=== PATIENT | female | born 1945 | race Caucasian/White ===

== ENCOUNTER 2020-01-17 11:25 | Emergency (ER) | payer OTHER ==
[~2020-01-17] VITALS: Ht 165.1 cm; Wt 86.2 kg
[~2020-01-17 11:25] MED LIST: ADVAIR 100-501 EACH INH; ALEVE220 MG PO; ALLEGRA ALLERGY60 MG; ASPIR 8181 M1 PO; AUGMENTIN 875875 M1; BACTROBAN15 GM; BENADRYL25 MG PO; BENICAR HCT 401 EACH PO; BENICAR40 MG; BUPROPION; CALCIUM MAGNES1 EAC2 PO; CALCIUM500 M1 PO; CELEBREX; CIPROFLOXACIN500 M3 GT; COUMADIN; COUMADIN 4 MG TA4 M1 PO; DICLOXACILLIN250 M1 OR; HYDROCODONE-AP1 EAC6 PO; HYDROCODONE-APA1 TA1 PO; HYDROXYZINE HCL25 M2 PO; KLOR-CON 1010 MEQ PO; LASIX 40 MG TAB40 M1 PO; LEVAQUIN 500 M500 MG PO; LYRICA; LYRICA 75 MG CA75 MG PO; MINIPRIN81 MG; PERCOCET 7.5-31 EACH PO; PLAVIX 75 MG TA75 MG; PROAIR HFA8.5 GM INH; SILVADENE20 GM; SIMVASTATIN40 MG PO; SINGULAIR 10 MG10 M1 PO; VITAMIN B-6250 MG PO; WELLBUTRIN SR100 MG PO; XARELTO10 MG PO
[2020-01-17] MEDS ORDERED: KEFLEX500 M1 PO (12:18)
[2020-01-17 13:45] VITALS: BP 139/66
== END 2020-01-17 13:46 | disposition home or self-care (01) ==
LOC: M.ERS 11:25
DX: I80.02 Phlebitis and thrombophlebitis of superficial vessels of left lower extremity (principal); J44.9 Chronic obstructive pulmonary disease, unspecified; I10 Essential (primary) hypertension; Z88.1 Allergy status to other antibiotic agents; Z91.040 Latex allergy status; Z88.6 Allergy status to analgesic agent; Z88.8 Allergy status to other drugs, medicaments and biological substances; Z90.49 Acquired absence of other specified parts of digestive tract; Z90.710 Acquired absence of both cervix and uterus; Z86.718 Personal history of other venous thrombosis and embolism

== ENCOUNTER → 2020-07-30 | Outpatient (CLI) | payer OTHER ==
[~2020-07-30] MED LIST changes: +KEFLEX500 M1 PO
== END ==
LOC: M.WC 08:00
PROVIDERS: ATTEND Emergency Medicine Undersea and Hyperbaric Medicine
DX: I87.012 Postthrombotic syndrome with ulcer of left lower extremity (principal); L97.822 Non-pressure chronic ulcer of other part of left lower leg with fat layer exposed; I73.9 Peripheral vascular disease, unspecified; I10 Essential (primary) hypertension; E78.5 Hyperlipidemia, unspecified; G47.30 Sleep apnea, unspecified; J44.9 Chronic obstructive pulmonary disease, unspecified; Z95.828 Presence of other vascular implants and grafts; Z90.49 Acquired absence of other specified parts of digestive tract

== ENCOUNTER 2020-10-17 14:42 | Inpatient (IN) | payer OTHER ==
[~2020-10-17] VITALS: Ht 167.6 cm; Wt 70.3 kg
[2020-10-17 14:51] VITALS: BP 169/94
[2020-10-17 16:18] LABS: ABSOLUTE LYMPHOCYTES 1.1 thou/uL (0.8-5.3); ABSOLUTE MONOCYTES 0.7 thou/uL (0.0-1.2); ABSOLUTE NEUTROPHILS 5.4 thou/uL (1.6-8.1); BASOPHILS 0.1 %; HEMATOCRIT 44.3 % (37.0-47.0); HEMOGLOBIN 14.9 gm/dL (12.0-15.0); LYMPHOCYTES 15.6 %; MCH 31.1 pg (26.0-34.0); MCHC 33.5 g/dL (28.0-37.0); MCV 92.8 fL (80.0-100.0); MONOCYTES 9.3 %; MPV 9.5 fl. (7.2-11.1); NUCLEATED RBCS 0 /100WBC; PLATELET COUNT* 224 thou/uL (150-400); RBC 4.78 mil/uL (4.20-5.00); RDW-CV 14.8 % (10.5-14.5); WBC 7.1 thou/uL (4.0-11.0)
[2020-10-17 16:21] LABS: CALCIUM 9.3 mg/dL (8.5-10.1); CREATININE 0.6 mg/dL (0.6-1.3); POTASSIUM 3.7 mmol/L (3.5-5.1)
[2020-10-17 16:26] LABS: ALBUMIN 3.6 g/dL (3.4-5.0); TOTAL BILIRUBIN 0.5 mg/dL (<0.1-1.0); TOTAL PROTEIN 6.8 g/dL (6.4-8.2)
[2020-10-17 17:44] VITALS: BP 128/92
[2020-10-17 20:00] VITALS: BP 108/66
[2020-10-18 05:27] LABS: ABSOLUTE LYMPHOCYTES 0.7 thou/uL (0.8-5.3); ABSOLUTE MONOCYTES 0.5 thou/uL (0.0-1.2); ABSOLUTE NEUTROPHILS 3.1 thou/uL (1.6-8.1); HEMATOCRIT 39.2 % (37.0-47.0); HEMOGLOBIN 13.2 gm/dL (12.0-15.0); LYMPHOCYTES 15.2 %; MCH 31.1 pg (26.0-34.0); MCHC 33.7 g/dL (28.0-37.0); MCV 92.4 fL (80.0-100.0); MONOCYTES 12.4 %; MPV 9.1 fl. (7.2-11.1); NUCLEATED RBCS 0 /100WBC; PLATELET COUNT* 189 thou/uL (150-400); POLYS 72.4 %; RBC 4.24 mil/uL (4.20-5.00); WBC 4.3 thou/uL (4.0-11.0)
[2020-10-18 05:40] LABS: CALCIUM 8.3 mg/dL (8.5-10.1); CREATININE 0.9 mg/dL (0.6-1.3); POTASSIUM 3.1 mmol/L (3.5-5.1)
[2020-10-18 08:30] VITALS: BP 138/88
[2020-10-18 16:00] VITALS: BP 140/82
[2020-10-18 20:11] VITALS: BP 191/99
[2020-10-19 02:55] VITALS: BP 119/83
[2020-10-19 04:44] LABS: ABSOLUTE LYMPHOCYTES 0.9 thou/uL (0.8-5.3); ABSOLUTE MONOCYTES 0.5 thou/uL (0.0-1.2); ABSOLUTE NEUTROPHILS 2.1 thou/uL (1.6-8.1); BASOPHILS 0.1 %; HEMATOCRIT 38.7 % (37.0-47.0); HEMOGLOBIN 13.3 gm/dL (12.0-15.0); LYMPHOCYTES 25.9 %; MCH 31.6 pg (26.0-34.0); MCHC 34.3 g/dL (28.0-37.0); MCV 92.2 fL (80.0-100.0); MONOCYTES 13.5 %; MPV 8.9 fl. (7.2-11.1); NUCLEATED RBCS 0 /100WBC; PLATELET COUNT* 163 thou/uL (150-400); POLYS 60.5 %; RDW-CV 15.4 % (10.5-14.5); WBC 3.5 thou/uL (4.0-11.0)
[2020-10-19 05:09] LABS: ALBUMIN 2.5 g/dL (3.4-5.0); CALCIUM 8.2 mg/dL (8.5-10.1); CREATININE 0.5 mg/dL (0.6-1.3); POTASSIUM 3.1 mmol/L (3.5-5.1); TOTAL BILIRUBIN 0.2 mg/dL (<0.1-1.0); TOTAL PROTEIN 5.2 g/dL (6.4-8.2)
[2020-10-19 08:05] VITALS: BP 120/59
[2020-10-19 08:36] LABS: MAGNESIUM 1.6 mg/dL (1.8-2.4); PHOSPHORUS* 2.7 mg/dL (2.5-4.9)
[2020-10-19 16:54] VITALS: BP 143/72
[2020-10-19 21:00] VITALS: BP 186/77
[2020-10-20 03:43] VITALS: BP 112/64
[2020-10-20 07:35] VITALS: BP 139/62
[2020-10-20 15:41] VITALS: BP 127/75
[2020-10-20 21:07] VITALS: BP 133/85
[2020-10-21 04:47] LABS: ABSOLUTE LYMPHOCYTES 1.5 thou/uL (0.8-5.3); ABSOLUTE MONOCYTES 0.5 thou/uL (0.0-1.2); ABSOLUTE NEUTROPHILS 2.2 thou/uL (1.6-8.1); BASOPHILS 0.1 %; HEMATOCRIT 33.9 % (37.0-47.0); HEMOGLOBIN 11.6 gm/dL (12.0-15.0); LYMPHOCYTES 35.3 %; MCH 31.6 pg (26.0-34.0); MCHC 34.3 g/dL (28.0-37.0); MCV 92.2 fL (80.0-100.0); MONOCYTES 12.7 %; MPV 9.1 fl. (7.2-11.1); NUCLEATED RBCS 0 /100WBC; PLATELET COUNT* 146 thou/uL (150-400); POLYS 51.9 %; RBC 3.68 mil/uL (4.20-5.00); RDW-CV 15.3 % (10.5-14.5); WBC 4.3 thou/uL (4.0-11.0)
[2020-10-21 04:53] LABS: CALCIUM 8.6 mg/dL (8.5-10.1); CREATININE 0.7 mg/dL (0.6-1.3); POTASSIUM 3.4 mmol/L (3.5-5.1)
[2020-10-21 08:20] VITALS: BP 141/71
[2020-10-21 19:30] VITALS: BP 161/72
[2020-10-22 05:12] LABS: MAGNESIUM 1.9 mg/dL (1.8-2.4); POTASSIUM 3.4 mmol/L (3.5-5.1)
[2020-10-22] MEDS ORDERED: DOXYCYCLINE 10100 M2 PO (14:20)
[2020-10-22 16:00] VITALS: BP 138/81
[2020-10-22 20:00] VITALS: BP 135/79
[2020-10-23 08:00] VITALS: BP 132/62
[2020-10-23 08:18] VITALS: BP 132/62
[2020-10-23 15:31] VITALS: BP 131/75
[2020-10-23 20:50] VITALS: BP 147/94
[2020-10-24 08:00] VITALS: BP 139/79
[2020-10-24 11:57] VITALS: BP 139/79
== END 2020-10-24 11:50 | disposition home or self-care (01) | DRG 602 ==
LOC: M.ERS 14:42 → M.TBA-ER 15:45 → M.ORTHSURG 15:45
PROVIDERS: Physician Assistant; ADMIT Internal Medicine; ATTEND Internal Medicine
DX: L03.116 Cellulitis of left lower limb (principal); G93.41 Metabolic encephalopathy; L97.929 Non-pressure chronic ulcer of unspecified part of left lower leg with unspecified severity; E44.0 Moderate protein-calorie malnutrition; J44.9 Chronic obstructive pulmonary disease, unspecified; I73.9 Peripheral vascular disease, unspecified; Z20.822 Contact with and (suspected) exposure to COVID-19; Z88.8 Allergy status to other drugs, medicaments and biological substances; Z88.1 Allergy status to other antibiotic agents; Z91.040 Latex allergy status; Z86.718 Personal history of other venous thrombosis and embolism; Z90.49 Acquired absence of other specified parts of digestive tract; Z90.722 Acquired absence of ovaries, bilateral; Z87.891 Personal history of nicotine dependence; Z95.828 Presence of other vascular implants and grafts; Z90.710 Acquired absence of both cervix and uterus; Z68.25 Body mass index [BMI] 25.0-25.9, adult; Z59.0 Homelessness; Z79.82 Long term (current) use of aspirin; Z79.899 Other long term (current) drug therapy